=== PATIENT | male | born 1975 | race Caucasian/White ===

== ENCOUNTER 2020-11-16 08:26 | Emergency (ER) | payer BC, SELFPAY ==
[2020-11-16 08:43] VITALS: BP 169/87; PULSE 99; RESP 20; TEMP 36.4; O2SAT 98
--- NOTE | 2020-11-16 08:57 | ED.URI ---
HPI - URI/Sore Throat General Chief Complaint: Upper Respiratory Infection Stated Complaint: headache sore throat stomeach upset Time Seen by Provider: 11/16/20 08:57 Source: patient Mode of arrival: ambulatory Limitations: no limitations History of Present Illness HPI Narrative: Maico Mays is a 45 yo male with no PMH (and does not have Dr)-Who had diarrhea x4 this morning and when he called to work they told him that he cannot come in until he had a Covid test. Patient comes here for evaluation has had a mild sore throat and diarrhea this morning says he feels okay and is not feverish no nausea or vomiting. Says friend and sibling had Covid and he does not feel fatigued but he agrees to wait on the testing In discussion about his elevation of blood pressure today since he has no primary care physician he discloses his father and uncle both have had aortic dissections the uncle of an aortic dissection; I recommended the patient that he get a CT of his chest and abdomen to be evaluated for aortic distention or aneurysm Related Data Home Medications Medication Instructions Recorded Confirmed No Home Medications 11/16/20 11/16/20 Allergies Allergy/AdvReac Type Severity Reaction Status Date / Time No Known Allergies Allergy Verified 11/16/20 08:56 Review of Systems Review of Systems: Narrative: CONSTITUTIONAL: Denies fever, chills, sweats. EYES: Denies visual changes, redness, discharge. ENT: Denies rhinorrhea, congestion, has sore throat, otalgia. CARDIOVASCULAR: Denies chest pain, palpitations, edema. RESPIRATORY: Denies dyspnea, wheezing, cough GASTROINTESTINAL: Denies abdominal pain, nausea, vomiting, has diarrhea. GENITOURINARY: Denies dysuria, hematuria, abnormal discharge SKIN: Denies rash or itching. NEUROLOGIC: Denies numbness, or focal weakness. PSYCHIATRIC: Denies anxiety or depression. [facility] Past Medical History Medical History No acute medical problems Family History Family History Other Heart disease Hypertension Social History Social History (Updated 11/16/20 @ 09:31 by Sofie Lamb CNP) Smoking packs per day: 0.5 Smoking cigarettes per day: 10.0 Smoking status: Current every day smoker Alcohol intake: current Alcohol use details: Drinks only sporadically once every couple months Comments At time of signature, I agree with nursing past medical, surgical, social and family history. There is no relevant family history pertinent to the presenting complaint. Patient referred to a primary care physician as his blood pressure was elevated today at this visit Exam Narrative: Exam Narrative: GENERAL: This is a well-nourished, well-developed patient, in mild distress. HEAD: normocephalic, atraumatic. EYES: Sclera clear/white. Vision is grossly intact. EARS: External ears normal, auditory canals clear and without drainage, TMs normal without perforation. Hearing grossly intact. NOSE: External nose normal without nasal discharge, nares without redness, no rhinorrhea. THROAT: Mucous membranes moist, posterior pharynx mild erythema NECK: Neck supple, non-tender CARDIOVASCULAR: Regular rate and rhythm without murmurs, gallops, or rubs. RESPIRATORY: Clear to auscultation. Breath sounds equal bilaterally. No wheezes, rales, or rhonchi. GASTROINTESTINAL: Abdomen soft, non-tender, SKIN: warm, intact with no suspicious lesions or rash, good texture and turgor. NEURO: awake, alert, and oriented to person, place and time. There were no obvious focal neurologic abnormalities. Steady gait EXTREMITIES: Normal range of motion. BACK: Nontender without deformity Course Course Emergency Course: Patient had diarrhea this morning and was told by her work that he had to be tested for Covid before he could return to work Because patient has had symptoms for only 1 day a PCR Covi
[2020-11-16 09:40] VITALS: BP 139/90
[2020-11-17 20:38] LABS: SARS-CoV-2 RNA PCR Negative
== END 2020-11-16 09:40 | disposition home or self-care (01) ==
PROVIDERS: Emergency Provider Nurse Practitioner
DX: Z20.822 Contact with and (suspected) exposure to COVID-19 (principal); R19.7 Diarrhea, unspecified; F17.210 Nicotine dependence, cigarettes, uncomplicated
CPT/HCPCS: 87081; 87880; 99213; C9803; G0463; U0003; U0005